=== PATIENT | female | born 1990 | race Caucasian/White ===

== ENCOUNTER 2021-12-13 08:55 | Outpatient (CLI) | payer OTHER | END 2021-12-13 08:56 | disposition home or self-care (01) | LOC: CSHLAB 08:55 | PROVIDERS: ATTEND Obstetrics & Gynecology | DX: Z01.812 Encounter for preprocedural laboratory examination (principal); Z20.822 Contact with and (suspected) exposure to COVID-19; Z53.9 Procedure and treatment not carried out, unspecified reason | CPT/HCPCS: 84703; 85027; 86850; 86900; 86901; U0003; U0005 ==

== ENCOUNTER 2021-12-18 05:49 | Day surgery (SDC) | payer OTHER ==
[2021-12-13 09:44] LABS: Hemoglobin 13.6 g/dL (12.0-15.5); Mean Corpuscular HGB CONC 33.1 g/dL (32.0-36.0); Mean Corpuscular Hemoglobin 31.3 pg (27.0-33.0); Mean Corpuscular Volume 94.7 fl (81.6-98.3); Mean Platelet Volume 9.5 fl (7.4-10.4); Platelet Count 210 10x3/uL (150-450); RBC Distribution Width 14.1 % (11.5-14.5); Red Blood Cell (RBC) Count 4.34 10x6/uL (3.90-5.03)
[2021-12-13 09:49] LABS: BHCG - Serum Negative (NEGATIVE); Pregs Control Background? CLEAR/WHITE (CLR/WHITE); Pregs Control Bar Appear? YES (CONTROL BAR)
[2021-12-16 09:01] VITALS: BMI 20.7
[2021-12-18] MEDS ORDERED: Lidocaine 1% MPF 2 ML VIAL ONE (06:31)
[2021-12-18] MEDS ORDERED: Gabapentin 300 MG CAP ONE (06:31)
[2021-12-18] MEDS ORDERED: CeleCOXIB 100 MG CAP ONE (06:31)
[2021-12-18] MEDS ORDERED: Pantoprazole 40 MG VIAL ONE (06:32)
[2021-12-18] MEDS ORDERED: PROPOFOL 20 ML ONE (06:49)
[2021-12-18] MEDS ORDERED: Glycopyrrolate 0.2 MG/ML 5 ML SYRINGE ONE (06:49)
[2021-12-18] MEDS ORDERED: Ondansetron PF 4 MG/2 ML Vial ONE (06:49)
[2021-12-18] MEDS ORDERED: Dexamethasone 4 mg/ml Vial ONE (06:49)
[2021-12-18] MEDS ORDERED: Midazolam HCl 2 mg/2 ml Vial ONE (06:49)
[2021-12-18] MEDS ORDERED: Fentanyl 250 MCG/5 ML VIAL ONE (06:49)
[2021-12-18] MEDS ORDERED: Rocuronium Bromide 10 MG/ML (10ML VIAL) ONE (06:49)
[2021-12-18] MEDS ORDERED: Ketorolac Tromethamine 30 MG/ML VIAL ONE (06:49)
[2021-12-18] MEDS ORDERED: Lidocaine 1% PF 5 ML VIAL ONE (06:49)
[2021-12-18] MEDS ORDERED: EPINEPHrine 1 MG/ML AMP ONE (06:52)
[2021-12-18] MEDS ORDERED: Bupivacaine PF 0.5% 30 ML VIAL ONE (06:52)
[2021-12-18] MEDS ORDERED: ceFAZolin 2 GM/Dextrose 50 ML IVPB ONE (07:17)
[2021-12-18] MEDS ORDERED: Fentanyl 100 MCG/2 ML VIAL ONE (09:27)
[2021-12-18] MEDS ORDERED: HYDROcodone/Acetaminophen 5/325 mg Tablet ONE (10:44)
== END 2021-12-18 11:10 | disposition home or self-care (01) ==
LOC: CSHSDC 05:49
PROVIDERS: ATTEND Obstetrics & Gynecology
PROC: 0UT74ZZ Resection of Bilateral Fallopian Tubes, Percutaneous Endoscopic Approach (ICD-10-PCS; principal; 2021-12-18)
PROC: 0UT94ZZ Resection of Uterus, Percutaneous Endoscopic Approach (ICD-10-PCS; principal; 2021-12-18)
PROC: 8E0W8CZ Robotic Assisted Procedure of Trunk Region, Via Natural or Artificial Opening Endoscopic (ICD-10-PCS; principal; 2021-12-18)
DX: N94.89 Other specified conditions associated with female genital organs and menstrual cycle (principal); G89.29 Other chronic pain; R10.2 Pelvic and perineal pain; N81.2 Incomplete uterovaginal prolapse; Z79.899 Other long term (current) drug therapy; Z88.8 Allergy status to other drugs, medicaments and biological substances; Z98.51 Tubal ligation status; Z20.822 Contact with and (suspected) exposure to COVID-19
CPT/HCPCS: 84703; 85027; 86850; 86900; 86901; 88307; C9113; J0171; J0690; J1100; J1885; J2250; J2405; J2704; J3010; S0020; U0003; U0005

== ENCOUNTER 2022-01-01 11:22 | Emergency (ER) | payer OTHER | END 2022-01-01 13:35 | disposition home or self-care (01) | LOC: CSHERS 11:22 | DX: M79.661 Pain in right lower leg (principal); F17.210 Nicotine dependence, cigarettes, uncomplicated ==